=== PATIENT | female | born 1990 | race Caucasian/White ===

== ENCOUNTER 2016-12-24 08:27 | Emergency (ER) | payer MEDICAID ==
[2016-12-24] MEDS ORDERED: HYDROcod/ACETAM 5/325 MG TABLET PO STA (08:46)
[2016-12-24] MEDS ORDERED: CEPHALEXIN 250 MG CAPSULE PO STA (08:46)
[2016-12-24] MEDS ORDERED: CEPHALEXIN 250 MG CAPSULE PO ONE (08:51)
== END 2016-12-24 09:00 | disposition home or self-care (01) ==
DX: K04.7 Periapical abscess without sinus (principal); K02.9 Dental caries, unspecified; F17.200 Nicotine dependence, unspecified, uncomplicated
CPT/HCPCS: 99283; A9270